=== PATIENT | male | born 1985 | race Caucasian/White ===

== ENCOUNTER 2021-10-31 23:40 | Emergency (ER) | payer OTHER ==
[~2021-10-31] VITALS: Ht 175.3 cm; Wt 172.4 kg
[2021-10-31 23:58] VITALS: BP 130/72
--- NOTE | 2021-11-01 00:01 | NUR ---
to lobby a/w bed ambulatory
--- NOTE | 2021-11-01 02:37 | NUR ---
AMBULATORY TO BED #4
--- NOTE | 2021-11-01 02:55 | NUR ---
REVEIVED IN BED 4 WITH C/O DIABETIC FOOT ULCER ON 5TH TOE WHICH IS NOW DRAINING.
--- NOTE | 2021-11-01 03:22 | NUR ---
Dr. Hinton examining patient.
[2021-11-01] MEDS ORDERED: KETOROLAC 60 MG/2 ML VIAL IM ONE (03:30)
[2021-11-01] MEDS ORDERED: ACET-8386 PO (04:14)
[2021-11-01] MEDS ORDERED: IBUP-2213 PO (04:14)
[2021-11-01] MEDS ORDERED: CEPH-588 PO (04:14)
[2021-11-01 04:15] VITALS: BP 130/72
--- NOTE | 2021-11-01 04:15 | NUR ---
Patient discharged with v/s stable. Written and verbal after care instructions given and explained. Patient alert, oriented and verbalized understanding of instructions. Ambulatory with steady gait. All questions addressed prior to discharge. ID band removed. Patient advised to follow up with PMD. Rx of KEFLEX, HYDROCODONE given. Patient educated on indication of medication including possible reaction and side effects. Opportunity to ask questions provided and answered.
== END 2021-11-01 04:15 | disposition home or self-care (01) ==
LOC: MED 23:40
DX: L03.011 Cellulitis of right finger (principal); E11.9 Type 2 diabetes mellitus without complications; K21.9 Gastro-esophageal reflux disease without esophagitis; F17.200 Nicotine dependence, unspecified, uncomplicated
CPT/HCPCS: 96372; 99283; J1885